=== PATIENT | female | born 1955 | race Caucasian/White ===

== ENCOUNTER → 2016-04-30 | Outpatient (CLI) | payer BC | END | disposition home or self-care (01) | LOC: PTH.S 04-20 10:00 → RAD.S 04-20 10:30 → PTH.S 07:30 → RAD.S 08:49 → PTH.S 05-01 10:00 | DX: R05 Cough (principal); R06.00 Dyspnea, unspecified ==

== ENCOUNTER → 2016-05-05 | Outpatient (CLI) | payer BC, SELFPAY | END | disposition home or self-care (01) | LOC: RAD.S 11:20 | DX: R06.09 Other forms of dyspnea (principal); R05 Cough; K22.8 Other specified diseases of esophagus; J98.4 Other disorders of lung ==

== ENCOUNTER → 2016-05-05 | Outpatient (CLI) | payer BC | END | disposition home or self-care (01) | LOC: PTH.S 08:30 → RAD.S 09:00 | DX: R05 Cough (principal); R06.00 Dyspnea, unspecified ==

== ENCOUNTER → 2016-06-12 | Outpatient (CLI) | payer BC, SELFPAY | END | disposition home or self-care (01) | LOC: RAD.S 05-15 08:00 | DX: J47.9 Bronchiectasis, uncomplicated (principal); J84.10 Pulmonary fibrosis, unspecified; R06.00 Dyspnea, unspecified; R05 Cough; R91.8 Other nonspecific abnormal finding of lung field ==